=== PATIENT | male | born 1980 | race African-American/Black ===

== ENCOUNTER → 2017-12-01 | Outpatient (CLI) | payer BC | END | disposition home or self-care (01) | LOC: HKI 15:48 | DX: M25.512 Pain in left shoulder (principal) | CPT/HCPCS: 73030; 73030-LT ==

== ENCOUNTER → 2018-03-27 | Outpatient (CLI) | payer BC | END | disposition home or self-care (01) | LOC: HKI 10:49 | DX: G89.29 Other chronic pain (principal); M25.512 Pain in left shoulder | CPT/HCPCS: Z7500 ==